=== PATIENT | male | born 1985 | race Caucasian/White ===

== ENCOUNTER 2020-08-28 10:46 | Outpatient (REF) | payer OTHER, MEDICAID, SELFPAY | END 2020-08-28 10:47 | disposition home or self-care (01) | LOC: HO.LAB 10:46 | PROVIDERS: Visit Provider Internal Medicine | DX: Z20.828 Contact with and (suspected) exposure to other viral communicable diseases (principal) | CPT/HCPCS: C9803; U0003 ==

== ENCOUNTER 2024-03-08 19:03 | Emergency (ER) | payer OTHER, SELFPAY ==
--- NOTE | ~2024-03-08 | XR_ITS ---
EXAMINATION: XR FOOT, LEFT CLINICAL INFORMATION: Injury. COMPARISON: None available. TECHNIQUE: AP, lateral, and oblique views of the left foot. FINDINGS: Soft tissue laceration at the tip of the great toe. There are multiple tiny radiopacities at the skin at this laceration. No osseous abnormality. Bone and joint are normal. XR/XR foot LT min 3V IMPRESSION: Soft tissue laceration at the tip of the great toe. There are multiple tiny radiopacities, debris, at the skin at this laceration.
[2024-03-08 19:07] VITALS: BP 124/83; PULSE 86; RESP 16; TEMP 36.6; O2SAT 98; BMI 33.8
[2024-03-08 21:41] VITALS: BP 127/88; PULSE 82; RESP 16; O2SAT 96
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
[2024-03-08] MEDS: Diphth,Pertus(ACell),Tet Adult 0.5 ML SYRINGE IM (21:59)
[2024-03-08 22:23] VITALS: BP 127/88; PULSE 82; RESP 16; TEMP 36.9; O2SAT 96
== END 2024-03-08 22:25 | disposition home or self-care (01) ==
PROVIDERS: Emergency Provider Emergency Medicine; PCP Internal Medicine
DX: S90.412A Abrasion, left great toe, initial encounter (principal); W22.8XXA Striking against or struck by other objects, initial encounter; Y93.55 Activity, bike riding; Y92.414 Local residential or business street as the place of occurrence of the external cause; Y99.9 Unspecified external cause status; Z23 Encounter for immunization
CPT/HCPCS: 73630; 90471; 90715; 99284